=== PATIENT | female | born 2000 | race Two or more races ===

== ENCOUNTER 2020-08-11 11:40 | Outpatient (CLI) | payer OTHER | END 2020-08-11 13:00 | disposition home or self-care (01) | LOC: OFIC 805 11:40 | PROVIDERS: ATTEND Otolaryngology | DX: J03.80 Acute tonsillitis due to other specified organisms (principal) ==

== ENCOUNTER → 2020-11-24 | Outpatient (CLI) | payer OTHER | END | disposition home or self-care (01) | LOC: OFIC 805 11:00 | PROVIDERS: ATTEND Otolaryngology | DX: J34.3 Hypertrophy of nasal turbinates (principal); R09.81 Nasal congestion; J30.89 Other allergic rhinitis ==

== ENCOUNTER 2021-01-23 10:27 | Outpatient (CLI) | payer OTHER | END 2021-01-23 11:38 | disposition home or self-care (01) | LOC: OFIC 805 10:27 | PROVIDERS: ATTEND Otolaryngology | DX: J34.3 Hypertrophy of nasal turbinates (principal); R09.81 Nasal congestion; J30.89 Other allergic rhinitis; J35.2 Hypertrophy of adenoids ==

== ENCOUNTER 2021-07-10 05:47 | Day surgery (SDC) | payer OTHER | END 2021-07-10 14:40 | disposition home or self-care (01) | LOC: CIR.AMB 05:47 | PROVIDERS: ATTEND Otolaryngology | DX: J35.02 Chronic adenoiditis (principal); Z20.822 Contact with and (suspected) exposure to COVID-19 ==